=== PATIENT | male | born 1965 | race Two or more races ===

== ENCOUNTER → 2016-09-16 | Outpatient (CLI) | payer OTHER ==
--- NOTE | 2016-09-17 16:07 | CONS ---
DATE OF SERVICE: 09/16/2016 This patient is a 50-year-old gentleman who has been evaluated in the sleep center for obstructive sleep apnea/hypopnea syndrome. HISTORY OF PRESENT ILLNESS/SLEEP-WAKE EVALUATION: This patient first was diagnosed with obstructive sleep apnea about 15 years ago. Since that time he has been using his CPAP equipment and he continues to use his CPAP equipment every night for the whole night. He lost about 90 pounds since his first sleep study. Sleep study was never repeated. He continued to use the same machine for 15 years. At present he has developed sleepiness during the day, wakes up tired , falls asleep during the day. [place] Sleepiness Scale is 12. He wakes up from sleep once with nocturia. No history of hypnagogic hallucinations, sleep paralysis or cataplexy. Past medical history if positive for problems with pain in his right foot after a work accident. MEDICATION: Gabapentin. PAST SURGICAL HISTORY: 1. Kidney surgery for cancer about 5 years ago. 2. Right wrist surgery at the age of 20. SOCIAL HISTORY: Negative for smoking or using alcohol. FAMILY HISTORY: Positive for lupus erythematosus in his mother and sister. REVIEW OF SYSTEMS: No fevers. No double vision. No recent chest pain. No shortness of breath. No abdominal pain. No bleeding episodes. No blood in urine. No seizure episodes. Sometimes awakenings from sleep. Sleepiness during the day. PHYSICAL EXAM: The patient is a pleasant 50-year-old gentleman without distress. VITAL SIGNS: Blood pressure 134/77, heart rate 81, respiratory rate 18. Height 6 feet 6-1/2 inches. Weight 409.8. BMI 46.7. Neck 20 inches in circumference. Temperature 98.7. Oxygen saturation at room air 94%. GENERAL: A pleasant patient without distress. HEENT: PERRLA. EOMI. Evaluation of oropharynx showed tongue protrudes midline. Low position of soft palate. Practical absence of uvula. NECK: Supple. No JVD. Thyroid is not palpable. LUNGS: Clear to percussion and to auscultation. Good air exchange. No wheezing or rhonchi. HEART: S1, S2 regular. No murmurs, gallops or rubs. ABDOMEN: Obese. EXTREMITIES: One plus bilateral ankle edema. LAP HAND TOOL: Awake, alert and oriented x3. Cranial nerves 2 through 7 are intact. There is no fasciculation or atrophy noted. No focal deficits observed. IMPRESSION: 1. Obstructive sleep apnea/hypopnea syndrome for 15 years. Recently patient developed tiredness and sleepiness during the day while he continued to use his CPAP equipment. CPAP equipment has not been changed since his first sleep study 15 years ago. 2. Obesity; body mass index 46.7. Patient lost 90 pounds since his first sleep study. 3. Status post partial nephrectomy on the right kidney for cancer. 4. Status post right wrist surgery. 5. Pain in the right foot after an injury in the past. PLAN: 1. Repeat CPAP titration for reevaluation for effective CPAP pressure at the present time after patient lost 90 pounds of weight. 2. Patient will get new CPAP equipment after titration is done. 3. Continue losing weight. 4. Sleep hygiene with regular time in the bed for at least 8 hours. 5. Prescription for all necessary CPAP supplied, including mask, tube, filters. Thank you very much for referring this patient for evaluation. Sincerely, Dustin Jimenez. , PhD, FAASM. Diplomat of [place] [employer], Sleep Medicine Board by [place] [employer] [place] [employer] Trimmer [employer] Clippings of [facility]
== END ==
LOC: SLEEP 15:30
PROVIDERS: ATTEND Internal Medicine
DX: G47.33 Obstructive sleep apnea (adult) (pediatric) (principal); E66.9 Obesity, unspecified; Z98.890 Other specified postprocedural states; Z79.899 Other long term (current) drug therapy
CPT/HCPCS: 99211

== ENCOUNTER → 2016-12-30 | Outpatient (CLI) | payer OTHER ==
--- NOTE | 2016-12-30 15:38 | PN ---
PROGRESS NOTE DATE OF SERVICE: 12/30/2016 51-year-old gentleman has been followed in sleep center for treatment of obstructive sleep apnea-hypopnea syndrome. Recently patient home sleep apnea test and CPAP titration and I discussed results of sleep studies with patient in detail. Home sleep apnea test showed severe obstructive sleep apnea-hypopnea syndrome with apnea-hypopnea index 40 and during CPAP titration, his respiration was normalized. The patient received his new CPAP unit and is able to use equipment every night without significant problem. He likes machine. He likes the mask. He does not wake up from sleep and he does not feel sleepiness during the day. [place] Sleepiness Scale today is 2. I checked reading from his machine. CPAP pressure is 12 cm of water usage. Usage is 29 days out of 30 for more than 4 hours, which is very good compliance. Apnea-hypopnea index on the machine is only 1.4, which is totally normal. 95% of leak is only 0.8. CURRENT MEDICATIONS: Gabapentin. PHYSICAL EXAM: 51-year-old gentleman without distress, BP 131/82, HR 100, RR 16, weight 418, temp 98.5, oxygen saturation: Room air 96%. Oropharynx low position of soft palate. Neck Supple, no JVD. Thyroid is not palpable. LUNGS Clear to percussion and to auscultation. Good air exchange. No wheezing or rhonchi. HEART S1, S2 regular. No murmurs, gallops, or rubs. ABDOMEN : Obese. Soft and nontender. Bowel sounds are present. No organomegaly appreciated. EXTREMITIES No clubbing or cyanosis. PUMPMAN Awake, alert, and oriented X3. Cranial nerves 2 to 7 intact. There is no fasciculation or atrophy. noted. No focal deficits observed. IMPRESSION: 1. Severe obstructive sleep apnea-hypopnea syndrome; apnea-hypopnea index 40.1 with oxygen saturation of 84% on control with CPAP at 12 cm of water. Patient demonstrated practically 100% compliance with treatment benefitting from treatment. 2. Obesity. 3. Status post resection of right kidney for the cancer. 4. Status post right wrist surgery. PLAN: 1. The patient will continue to use his CPAP equipment every night for the whole night. 2. Losing weight. 3. Sleep hygiene with regular time in bed for at least 8 hours. 4. No driving if feeling sleepiness. 5. Prescription for all necessary CPAP supplies including mask, tube, filters. 6. Followup visit in 1 year or earlier if patient has any problems. Thank you very much for allowing me to participate in management of your patient. Sincerely, Dustin Jimenez MD, PhD, FAASM Diplomat of [place] [employer] [place] [employer] Priest of [facility] [place] MMSOUTHL / FRANTZN: [id number] /
== END | disposition home or self-care (01) ==
LOC: SLEEP 13:26
PROVIDERS: ATTEND Internal Medicine
DX: G47.33 Obstructive sleep apnea (adult) (pediatric) (principal); E66.9 Obesity, unspecified; Z98.890 Other specified postprocedural states; Z79.899 Other long term (current) drug therapy

== ENCOUNTER → 2017-12-02 | Outpatient (CLI) | payer OTHER ==
--- NOTE | 2017-12-02 12:10 | P.STRESS ---
- Stress Test Note Stress Test Results/Findings: Exam Performed: stress test Exam Date: 12/02/17 Reason for Exam: CP Height: 6 ft 7 in Weight: 182.798 kg Protocol: ERROL Stage: 84 Duration of Exercise: 6:15 Resting Heart Rate: 84 Resting Blood Pressure: 144/103 Maximum Achieved Heart Rate: 155 Maximum Achieved Blood Pressure: 144/103 85% PMHR: 144 100% PMHR: 169 METS: 7.5 Technologist Comment: Stress Test Results/Findings: This is a 52-year-old gentleman being evaluated for cardiac status because of her frequent PVCs. Stress data: Baseline EKG showed sinus rhythm with evidence of occasional PVCs. Blood pressure at rest is 1 4403 with pulse rate of 84. Patient walked on the Errol protocol for 6 minutes and 15 seconds achieving a maximal heart rate of 155 with a blood pressure 111/54. EKGs taken during and after exercise did not reveal any changes to sized ischemia. Patient did not express any chest pain. Patient continued to have PVCs which are ineffective focal and the PICU, frequent with bigeminal pattern. The post-excised.. No sustained arrhythmias are detected. Patient did not experience any chest pain. Final impression #1. Negative stress test #2. Patient did not express any chest pain #3. Patient had frequent PVCs at rest and also throughout the test. Developed bigeminal pattern in the post-exercise period. Patient remained asymptomatic
--- NOTE | 2017-12-03 07:42 | ECHOF ---
Referral Reason:I49.3 Ventricular premature depolarization MEASUREMENTS -------- HEIGHT: 200.7 cm WEIGHT: 182.3 kg BP: RVIDd: 2.5 cm (< 3.3) IVSd: 1.2 cm (0.6 - 1.1) LVIDd: 5.8 cm (3.9 - 5.3) LVPWd: 1.3 cm (0.6 - 1.1) IVSs: 1.4 cm LVIDs: 4.1 cm LVPWs: 1.5 cm LAESV Index (A-L): 25.22 ml/m Ao Diam: 3.3 cm (2.0 - 3.7) AV Cusp: 1.8 cm (1.5 - 2.6) LA Diam: 4.5 cm (2.7 - 3.8) MV E Kostas: 0.94 m/s MV DecT: 353 ms MV A Kostas: 0.33 m/s MV E/A Ratio: 2.86 RAP: 10.00 mmHg RVSP: 33.61 mmHg FINDINGS -------- Sinus rhythm. Frequent ventricular premature beats. This was a technically difficult study with suboptimal views. The left ventricular size is normal. There is mild concentric left ventricular hypertrophy. Overa ll left ventricular systolic function is normal with, an EF between 55 - 60 %. The right ventricle is normal in size and function. Normal LA size by volume 22+/-6 ml/m2. The right atrium is normal in size. 3 ml of Lumason was utilized for enhancement of images. There is mild aortic valve sclerosis. There is no evidence of aortic regurgitation. There is no e vidence of aortic stenosis. The mitral valve leaflets are mildly thickened. There is trace to mild mitral regurgitation. Trace tricuspid regurgitation present. Right ventricular systolic pressure is normal at < 35 mmHg. There is no evidence of pulmonary hypertension. The pulmonic valve was not well visualized. The aortic root size is normal. The IVC is dilated with normal collapse. There is no pericardial effusion. CONCLUSIONS -------- 1. Sinus rhythm. 2. Frequent ventricular premature beats. 3. This was a technically difficult study with suboptimal views. 4. The left ventricular size is normal. 5. There is mild concentric left ventricular hypertrophy. 6. Overall left ventricular systolic function is normal with, an EF between 55 - 60 %. 7. Normal LA size by volume 22+/-6 ml/m2. 8. 3 ml of Lumason was utilized for enhancement of images. 9. There is mild aortic valve sclerosis. 10. The mitral valve leaflets are mildly thickened. 11. There is trace to mild mitral regurgitation. 12. Trace tricuspid regurgitation present. 13. Right ventricular systolic pressure is normal at < 35 mmHg. 14. There is no evidence of pulmonary hypertension. 15. The pulmonic valve was not well visualized. 16. The aortic root size is normal. 17. The IVC is dilated with normal collapse. 18. There is no pericardial effusion. WASTE WATER OPERATOR: Cheo Callaway RDCS
== END | disposition home or self-care (01) ==
LOC: RADNMMAIN 11:18
PROVIDERS: ATTEND Family Medicine
DX: I49.3 Ventricular premature depolarization (principal); I35.8 Other nonrheumatic aortic valve disorders; R00.8 Other abnormalities of heart beat
CPT/HCPCS: 93017; C8929; Q9950; 93306

== ENCOUNTER → 2018-02-22 | Outpatient (CLI) | payer OTHER ==
[2018-02-22 14:13] LABS: HCT 41.7 % (39.0-53.0); HGB 13.6 gm/dL (13.0-17.5); MCH 28.1 pg (25.0-35.0); MCHC 32.6 g/dL (31.0-37.0); MCV 86.1 fL (80.0-100.0); Mean Platelet Volume 6.6; Platelet Count 179 k/uL (150-450); RBC 4.84 m/uL (4.30-5.90); RDW 13.7 % (11.5-15.5); WBC 7.9 k/uL (3.8-10.6)
[2018-02-22 14:56] LABS: Potassium 4.3 mmol/L (3.5-5.1)
== END ==
LOC: LABPAT 13:34
PROVIDERS: ATTEND Internal Medicine Interventional Cardiology
DX: Z01.812 Encounter for preprocedural laboratory examination (principal); I49.3 Ventricular premature depolarization; E66.01 Morbid (severe) obesity due to excess calories; C64.2 Malignant neoplasm of left kidney, except renal pelvis
CPT/HCPCS: 80051; 82565; 84520; 85027

== ENCOUNTER 2018-02-24 08:35 | Day surgery (SDC) | payer OTHER ==
[2018-02-22 17:57] VITALS: BMI 44.8
[~2018-02-24 08:35] MED LIST: ALPRAZolam 0.25 MG TAB PO PRN; ALPRAZolam 0.5 MG TAB PO PRN; ASPIRIN 325 MG TAB PO ONE; ATORVASTATIN 80 MG TAB PO ONE; NITROGLYCERIN SL TABS 0.4 MG TAB SUBLINGUAL PRN; SODIUM CHLORIDE 0.9% 1,000 ML in EMPTY BAG 1 BAG IV ONE
[2018-02-24 09:14] VITALS: TEMP 97.6
[2018-02-24] MEDS ORDERED: HEPARIN SODIUM 1,000 UN/ML (10ML VL) ONE (09:31)
[2018-02-24] MEDS ORDERED: VERAPAMIL 2.5 MG/ML 2 ML AMP ONE (09:32)
[2018-02-24] MEDS ORDERED: LIDOCAINE 1% INJ 10MG/ML (20 ML MDV) ONE (09:32)
[2018-02-24] MEDS: MIDAZOLAM 2 MG/2 ML VIAL IVP ONE ×3 (09:52→10:03)
[2018-02-24] MEDS: LIDOCAINE 1% INJ 10MG/ML (20 ML MDV) SQ ONE ×2 (09:55→09:57)
[2018-02-24] MEDS: VERAPAMIL SYRINGE (5 MG/10 ML) INTRAARTER ONE ×2 (10:01→10:13)
[2018-02-24] MEDS ORDERED: HEPARIN SODIUM 1,000 UN/ML (10ML VL) IV ONE (10:03)
[2018-02-24] MEDS ORDERED: IOPAMIDOL-370 100ML BTL INJ ONE (10:09)
[2018-02-24 11:08] VITALS: RESP 16
--- NOTE | 2018-02-24 11:13 | CC ---
CARDIAC CATHETERIZATION REPORT DATE OF SERVICE: 02/24/2018 PROCEDURE: Left heart catheterization and coronary angiography. PERFORMED BY: Dr. Mai Kelly. Moderate conscious sedation time was 23 minutes. He was given Versed and his oxygen saturation, hemodynamics and EKG were monitored closely. CLINICAL INFORMATION: Mr. Oleg Lainez is a gentleman who weighs more than 350 pounds, has frequent PVCs and an abnormal stress test with anteroseptal and reversible area and short runs of PAT in the recovery after walking for about 6 minutes. Because of abnormal stress test, frequent PVCs and significant risk factors. He was advised coronary angiography. He had a history of renal cell cancer for which he had a nephrectomy performed. He was hydrated, brought in for the procedure and was advised that he will be given the least amount of contrast. PROCEDURE NOTE: Under local anesthesia and strict aseptic precautions, a 6-Jamaican introducer was placed in the right radial artery. I used a micropuncture needle technique for access. Using an Ultimate 1 catheter I performed coronary angiography of both coronary arteries and a pigtail catheter was used to check LV pressures. LV gram was not performed. Sheath was taken out and a TR band applied as per protocol and oxygen saturation of the fingers of the right hand was 94%. Patient tolerated procedure well without complications. Results were discussed with him. Images reviewed and also I will talk to his by phone. CARDIAC CATHETERIZATION FINDINGS: The left ventricular end-diastolic pressure was about 11 mmHg without any gradient across the aortic valve. CORONARY ANGIOGRAPHY FINDINGS: RIGHT CORONARY ARTERY: A very dominant vessel. No significant disease. Distally bifurcates into a large PDA and PLV, both of which supply a fair amount of myocardium. No significant disease in the dominant RCA. The branches of the RCA are somewhat smaller than the main trunk. LEFT MAIN CORONARY ARTERY: This is a short patent vessel free of significant disease that bifurcates into LAD and circumflex. LEFT ANTERIOR DESCENDING CORONARY ARTERY: Good caliber vessel, extends along the anterior wall, gives off septal and diagonal branches. There is a large diagonal and large septal, then smaller septal, after that then the vessel runs all the way to the apex and curves over the apex to supply the inferoapical portion of left ventricle. No significant disease involving the LAD system. LEFT POSTERIOR CIRCUMFLEX CORONARY ARTERY: Small, nondominant vessel. No significant disease. It runs in the AV groove and gives off a posterolateral branch, has minor irregularities. LV-gram was not performed. LV pressures were checked. IMPRESSION: This patient has a right dominant system, no significant obstructive coronary artery disease and normal filling pressures. Left ventriculogram was not performed, but by echocardiogram, ejection fraction was 55%. RECOMMENDATION: Findings were discussed with the patient. He is advised to be on a beta mahin 25 mg of metoprolol daily, aspirin 81 mg daily, and I will see him in the office in a followup visit. No intervention necessary. Specifically, he does not require any coronary intervention and also we will treat him with a small dose of beta blockers and see the impact of this by a repeating a Holter down the road. I discussed my thoughts in detail with the patient and I will speak to his as well. EL / FRANTZN: [id number] /
[2018-02-24] MEDS ORDERED: SODIUM CHLORIDE 0.9% 1,000 ML IV SCH (11:15)
[2018-02-24 17:25] VITALS: BP 112/87
[2018-02-24 17:28] VITALS: PULSE 62
== END 2018-02-24 17:25 | disposition home or self-care (01) ==
LOC: CATHCVL 08:35
PROVIDERS: ATTEND Internal Medicine Interventional Cardiology
DX: I49.3 Ventricular premature depolarization (principal); E66.01 Morbid (severe) obesity due to excess calories; Z85.528 Personal history of other malignant neoplasm of kidney; Z88.5 Allergy status to narcotic agent; Z90.5 Acquired absence of kidney; Z79.82 Long term (current) use of aspirin; Z79.899 Other long term (current) drug therapy
CPT/HCPCS: 93458; 99152; 99153; C1769; C1894; J2250; J2001; J1644; Q9967

== ENCOUNTER → 2018-03-02 | Outpatient (CLI) | payer OTHER ==
--- NOTE | 2018-03-02 16:22 | PN ---
PROGRESS NOTE DATE OF SERVICE: 03/02/2018 This patient is a 52-year-old gentleman who has been followed in Sleep Center for treatment of severe obstructive sleep apnea-hypopnea syndrome. The patient continues to use his CPAP equipment every night for the whole night. Sometimes he has problems related to the full-face mask leaking to the upper part of his face. [place] Sleepiness Scale today is only 2, which is absolutely normal. I checked the CPAP unit. CPAP pressure is 12 cm of water. Usage is 100% of the nights and 27/30 nights for more than 4 hours. Average usage is 7.6 hours. CPAP pressure is 12 cm of water. Leak is only 1 L/minute. Apnea-hypopnea index is only 1.5, which is absolutely perfect. MEDICATION: Lopressor. PHYSICAL EXAMINATION: GENERAL: A pleasant patient in no distress. VITAL SIGNS: BP 154/91, HR 50, RR 16, height 6 feet 4 inches, weight 409, body mass index 49.7, temperature 97.4, oxygen saturation at room air 98%. HEENT: PERRLA, EOMI. Evaluation of oropharynx showed tongue protrudes midline. Low position of soft palate. NECK: Supple. No JVD. Thyroid is not palpable. LUNGS: Clear to percussion and to auscultation. Good air exchange. No wheezing or rhonchi. HEART: S1, S2 with some irregularities. ABDOMEN: Obese. EXTREMITIES: No clubbing or cyanosis. FORMS BUILDER: Awake, alert, and oriented X3. Cranial nerves 2 to 7 intact. There is no fasciculation or atrophy. noted. No focal deficits observed. IMPRESSION: 1. Severe obstructive sleep apnea-hypopnea syndrome; apnea-hypopnea index 40.1, under full control with CPAP at 12 cm of water. Patient demonstrated great compliance with treatment, benefitting from treatment. 2. Patient complains of some leak from full-face mask to the upper part of the face. 3. Obesity. 4. Cardiac arrhythmia. According to the patient, a recent study showed that he has extrasystoles, and cardiac catheterization and stress test are normal. 5. Status post resection of right kidney for cancer. 6. Status post right wrist surgery. PLAN: 1. Patient will continue to use CPAP equipment every night for the whole night. 2. We will fit patient with a DreamWear mask, and if he likes it, I will write a prescription. 3. Losing weight. 4. Sleep hygiene with regular time in bed for least 8 hours. 5. No driving if feeling any sleepiness. Thank you very much for allowing me to participate in the management of your patient. Sincerely, Dustin Jimenez MD, PhD, FAASM Diplomat of [place] [employer] [employer] Cad Manager of [facility] [place] MMODL / FRANTZN: [id number] /
== END ==
LOC: SLEEP 15:04
PROVIDERS: ATTEND Internal Medicine
DX: G47.33 Obstructive sleep apnea (adult) (pediatric) (principal); E66.9 Obesity, unspecified; I49.9 Cardiac arrhythmia, unspecified; Z90.5 Acquired absence of kidney; Z85.528 Personal history of other malignant neoplasm of kidney; Z98.890 Other specified postprocedural states; Z99.89 Dependence on other enabling machines and devices

== ENCOUNTER → 2019-12-20 | Outpatient (CLI) | payer OTHER ==
--- NOTE | 2019-12-21 00:59 | SFUN ---
SLEEP CENTER FOLLOW UP NOTE DATE OF SERVICE: 12/20/2019 A 54-year-old gentleman who has been followed in Sleep Center for treatment of obstructive sleep apnea-hypopnea syndrome. The patient continues to use his CPAP equipment every night for the whole night. Sleeps well with equipment, does not snore. He increased his weight from 409 pounds up to 472 pounds. [place] Sleepiness Scale is 6, which is normal. I checked his CPAP unit. CPAP pressure is 12 cm of water. Usage is 30 out of 30 nights for more than 4 hours with average usage 9.4 hours per night. Leak is only 2 L/minute. Apnea-hypopnea index is 1.2, which is perfect. MEDICATIONS: Mirtazapine. PHYSICAL EXAMINATION: GENERAL: Patient in no distress. VITAL SIGNS: BP 163/85, HR 88, RR 16, height 6 feet 5 inches, weight 472, BMI 55.9, temperature 98.3, oxygen saturation at room air 95%. HEENT: PERRLA, EOMI. Oropharynx low position of soft palate. NECK: Supple, no JVD. Thyroid is not palpable. LUNGS: Clear to percussion and to auscultation. Good air exchange. No wheezing or rhonchi. HEART: S1, S2 regular. No murmurs, gallops, or rubs. ABDOMEN: Obese. EXTREMITIES: No clubbing or cyanosis. EMULSIFICATION OPERATOR: Awake, alert, and oriented X3. Cranial nerves 2 to 7 intact. There is no fasciculation or atrophy. noted. No focal deficits observed. IMPRESSION: 1. Obstructive sleep apnea-hypopnea syndrome; apnea-hypopnea index 40.1. Patient demonstrated 100% compliance with treatment. Normal respiration on treatment. 2. Obesity, morbid range. 3. History of cardiac arrhythmia. 4. Status post resection of right kidney for cancer. 5. Status post right wrist surgery. PLAN: 1. Patient will continue to use PAP equipment every night for the whole night. 2. Sleep hygiene with regular time in bed for at least 7-1/2 to 8 hours. 3. Precautions related to driving. No driving if feeling sleepiness. 4. I will maintain all necessary prescription for PAP supplies including mask, tube, filters. 5. Watching weight. 6. No driving if feeling sleepiness. 7. Follow-up visit in 6 months or earlier if patient has any problems. Thank you very much for allowing me to participate in management of your patient. Sincerely, Dustin Jimenez MD, PhD, FAASM Diplomat of [place] [employer] [employer] Sap Gatherer of [facility] [place] EL / JOY: [id number] /
== END | disposition home or self-care (01) ==
LOC: SLEEP 15:28
PROVIDERS: ATTEND Internal Medicine
DX: G47.33 Obstructive sleep apnea (adult) (pediatric) (principal); E66.01 Morbid (severe) obesity due to excess calories; Z86.79 Personal history of other diseases of the circulatory system; Z90.5 Acquired absence of kidney; Z98.890 Other specified postprocedural states

== ENCOUNTER 2020-08-04 15:31 | Emergency (ER) | payer OTHER ==
[2020-08-04 15:54] VITALS: RESP 20
--- NOTE | 2020-08-04 17:03 | ED ---
Upper Extremity HPI - General Chief Complaint: Extremity Injury, Upper Stated Complaint: thumb injury Time Seen by Provider: 08/04/20 16:23 Source: patient, RN notes reviewed Mode of arrival: ambulatory Limitations: no limitations - History of Present Illness Initial Comments: Patient is a 54-year-old male that presents to emergency department with right thumb pain after slamming in his car door. He notes that it was bleeding at the base of the nail but was controlled with a Band-Aid. He notes that she does have full range of motion and sensation in that thumb is just a little bit numb from the trauma. He had no other complaints or issues and was in no distress while sitting up during exam and interview. He notes that his pain was approximately a 7 out of 10 pulse eating in nature. He denied any numbness tingling decreased range of motion or strength in that right thumb. He denied any chest pains worse breath headache nausea vomiting diarrhea constipation fever fatigue chills. - Related Data Home Medications Medication Instructions Recorded Confirmed Multivitamins, Thera [Multivitamin 1 tab PO DAILY 02/16/18 05/05/18 (formulary)] Loratadine [Claritin] 10 mg PO DAILY 05/05/18 05/05/18 Metoprolol Tartrate 25 mg PO DAILY@1200 05/05/18 05/05/18 Terbinafine [LamISIL] 250 mg PO DAILY 05/05/18 05/05/18 Allergies Allergy/AdvReac Type Severity Reaction Status Date / Time morphine AdvReac Nausea & Verified 08/04/20 15:50 Vomiting Review of Systems ROS Statement: Those systems with pertinent positive or pertinent negative responses have been documented in the HPI. ROS Other: All systems not noted in ROS Statement are negative. Past Medical History Past Medical History: Cancer, Sleep Apnea/CPAP/BIPAP Additional Past Medical History / Comment(s): kidney cancer with surgery (2012), hx kidney stones, hx subaracchoid hemorrhage, bigeminy. History of Any Multi-Drug Resistant Organisms: None Reported Past Surgical History: Heart Catheterization, Orthopedic Surgery Additional Past Surgical History / Comment(s): partial nephrectomy(not sure which), rt wrist surgery Past Anesthesia/Blood Transfusion Reactions: No Reported Reaction Past Psychological History: Depression Smoking Status: Never smoker Past Alcohol Use History: None Reported Past Drug Use History: None Reported - Past Family History Mother Family Medical History: No Reported History General Exam Limitations: no limitations General appearance: alert, in no apparent distress, obese Head exam: Present: atraumatic, normocephalic, normal inspection Eye exam: Present: normal appearance, PERRL, EOMI. Absent: scleral icterus, conjunctival injection, periorbital swelling Neck exam: Present: normal inspection Respiratory exam: Present: normal lung sounds bilaterally. Absent: respiratory distress, wheezes, rales, rhonchi, stridor Cardiovascular Exam: Present: regular rate, normal rhythm, normal heart sounds. Absent: systolic murmur, diastolic murmur, rubs, gallop, clicks Extremities exam: Present: normal inspection, full ROM, normal capillary refill. Absent: tenderness, pedal edema, joint swelling, calf tenderness Right Hand Wrist exam: Present: normal inspection, subungual hematoma (Right thumb). Absent: laceration, ecchymosis, deformity, crepitus, dislocation, erythema, nail avulsion Neurological exam: Present: alert, oriented X3, CN II-XII intact Psychiatric exam: Present: normal affect, normal mood Skin exam: Present: warm, dry, intact, normal color. Absent: rash Course Vital Signs 08/04/20 15:50 Temperature 98.5 F Pulse Rate 112 H Respiratory 20 Rate Blood Pressure 150/78 O2 Sat by Pulse 94 L Oximetry Medical Decision Making - Medical Decision Making 54-year-old male with right thumb pain after slamming in a car door. Right thumb x-ray, 15 mg of Toradol ordered. case discusses with Dr. Bledsoe, pt can discharge home with follow up to primary care. - Radiology Data Radiology results: report reviewed, image reviewed xr right thumb: No acute osseous abnormality. Disposition Clinical Impression: Pain of right thumb Disposition: HOME SELF-CARE Condition: Stable Instructions (If sedation given, give patient instructions): Finger Sprain (ED) Additional Instructions: Please return to the Emergency Department if symptoms worsen or any other concerns. Follow-up with primary care in 3-5 days. Take Tylenol Motrin for pain as needed. Is patient prescribed a controlled substance at d/c from ED?: No Referrals: Geovanna Fortune MD [Primary Care Provider] - 1-2 days Time of Disposition: 18:19
--- NOTE | 2020-08-04 18:31 | XR ---
EXAMINATION TYPE: XR finger RT DATE OF EXAM: 08/04/2020 COMPARISON: NONE HISTORY: 54-year-old male right thumb shut in car door, pain. TECHNIQUE: 3 views coned down right thumb FINDINGS: Some underlying osteophytic changes present especially at the base of the thumb but also at the first MCP and IP joints. There is corticated density along the dorsal aspect of the proximal phalangeal he ad suggesting either capsular calcification or a chronically fragmented spur. No acute fracture, subl uxation, dislocation seen. IMPRESSION: Scattered osteoarthritic change. Corticated density measuring 4 mm along the dorsal aspect of the pro ximal phalangeal head could represent capsular calcification, a loose body, or a chronically fragment ed spur. No acute osseous abnormality seen.
[2020-08-04 18:38] VITALS: BP 140/83; PULSE 92; TEMP 97.5
== END 2020-08-04 18:38 | disposition home or self-care (01) ==
LOC: EC 15:31
DX: M79.644 Pain in right finger(s) (principal); W23.0XXA Caught, crushed, jammed, or pinched between moving objects, initial encounter
CPT/HCPCS: 99283

== ENCOUNTER → 2020-12-18 | Outpatient (CLI) | payer OTHER ==
--- NOTE | 2020-12-18 14:50 | SFUN ---
SLEEP CENTER FOLLOW UP NOTE DATE OF SERVICE: 12/18/2020 55-year-old gentleman has been followed in [facility] for treatment of obstructive sleep apnea-hypopnea syndrome. The patient referred that for the last 6 months has problems with falling asleep and started to wake up from sleep, which did not happen before. No information about does he have any snoring because he sleeps by himself. [place] Sleepiness Scale today is 7 which is in normal range. I checked his CPAP unit. Pressure is 12 cm of water. Usage is 29/30 nights, which is good compliance. Average 8.6 hours per night. Leak is only 1 L/minute which is perfect. Apnea-hypopnea index is only 1.4 which is absolutely perfect. MEDICATIONS: Metformin twice a day. PHYSICAL EXAMINATION: GENERAL: Patient in no distress. BP 147/88, HR 78, RR 18, height 6 feet 5 inches, weight 477.6, which is 5 pounds more than during the last visit. Body mass index 56.5, temperature 97.1, oxygen saturation at room air 98%. Oropharynx low position of soft palate. NECK: Supple, no JVD. Thyroid is not palpable. LUNGS: Clear to percussion and to auscultation. Good air exchange. No wheezing or rhonchi. HEART: S1, S2 regular. No murmurs, gallops, or rubs. ABDOMEN: Obese. Soft and nontender. Bowel sounds are present. No organomegaly appreciated. EXTREMITIES: No clubbing or cyanosis. [employer] MEMBER: Awake, alert, and oriented X3. Cranial nerves 2 to 7 intact. There is no fasciculation or atrophy. noted. No focal deficits observed. IMPRESSION: 1. Severe obstructive sleep apnea-hypopnea syndrome. The patient demonstrated great compliance with treatment. Normal respiration on CPAP machine. No information about any snoring because patient sleeps by himself. 2. Recently difficulties to initiate sleep and some awakenings from sleep with difficulties to fall asleep. Sleep schedule from 11 p.m. to 10 a.m. 3. History of cardiac arrhythmia. 4. Status post resection of right kidney for cancer. 5. Status post right wrist surgery. PLAN: 1. I slightly increased pressure in the machine to 13 cm of water. 2. I discussed with the patient psychological techniques for treatment of insomnia, including stimulus control, paradoxical intention, worry time, no watching clock in bedroom. 3. No caffeinated beverages. 4. Prescription for clonazepam 0.5 mg at bedtime to establish sleep schedule. 5. Patient will continue to use PAP equipment every night for the whole night. 6. Sleep hygiene with regular time in bed for at least 7-1/2 to 8 hours. 7. Precautions related to driving. No driving if feeling sleepiness. 8. I will maintain all necessary prescription for PAP supplies including mask, tube, filters. 9. Watching weight. 10.Follow-up visit in 6 months or earlier if patient has any problems. Thank you very much for allowing me to participate in the management of your patient. Sincerely, Dustin Jimenez MD, PhD, FAASM Diplomat of [employer] [employer] Sleep Medicine Board of [place] [employer] Clinical Laboratory Assistant of [facility] [place] MMSIXTO / JOY: [id number] / MTDD
== END ==
LOC: SLEEP 12:57
PROVIDERS: ATTEND Internal Medicine
DX: G47.33 Obstructive sleep apnea (adult) (pediatric) (principal); Z99.89 Dependence on other enabling machines and devices; Z90.5 Acquired absence of kidney; Z98.890 Other specified postprocedural states; Z86.79 Personal history of other diseases of the circulatory system; Z88.5 Allergy status to narcotic agent

== ENCOUNTER → 2021-01-02 | Outpatient (CLI) | payer OTHER | END | disposition home or self-care (01) | LOC: LABWHC1 14:59 | PROVIDERS: ATTEND Family Medicine | DX: R53.83 Other fatigue (principal) | CPT/HCPCS: 36415; 84402; 84403 ==

== ENCOUNTER 2021-03-29 14:11 | Emergency (ER) | payer OTHER ==
[2021-03-29 14:35] VITALS: RESP 18; TEMP 97.7
[2021-03-29] MEDS ORDERED: SODIUM CHLORIDE 0.9% 1,000 ML IV STA (15:36)
--- NOTE | 2021-03-29 15:50 | ED ---
General Adult HPI - General Chief complaint: GI Bleed Stated complaint: Blood in stool Time Seen by Provider: 03/29/21 14:54 Source: patient, RN notes reviewed Mode of arrival: ambulatory Limitations: no limitations - History of Present Illness Initial comments: 55-year-old male presents to the emergency department for evaluation of bloody diarrhea. Patient states he had 2 episodes of diarrhea yesterday that were soft evidence of blood. States today at work he had an episode of diarrhea that was a moderate amount of bright red bleeding with dark red clots and minimal stool. States he had abdominal cramping and discomfort for a brief period of time after that, however states discomfort has resolved at this time. Did have some nausea initially, but states that has resolved as well. Patient denies any recent travel or use of oral antibiotics. Denies fever, chills, dizziness, chest pain, shortness of breath, vomiting, constipation, dysuria, or hematuria. - Related Data Home Medications Medication Instructions Recorded Confirmed Multivitamins, Thera [Multivitamin 1 tab PO DAILY 02/16/18 05/05/18 (formulary)] Loratadine [Claritin] 10 mg PO DAILY 05/05/18 05/05/18 Metoprolol Tartrate 25 mg PO DAILY@1200 05/05/18 05/05/18 Terbinafine [LamISIL] 250 mg PO DAILY 05/05/18 05/05/18 Allergies Allergy/AdvReac Type Severity Reaction Status Date / Time morphine AdvReac Nausea & Verified 03/29/21 14:35 Vomiting Review of Systems ROS Statement: Those systems with pertinent positive or pertinent negative responses have been documented in the HPI. ROS Other: All systems not noted in ROS Statement are negative. Past Medical History Past Medical History: Cancer, Sleep Apnea/CPAP/BIPAP Additional Past Medical History / Comment(s): kidney cancer with surgery (2012), hx kidney stones, hx subaracchoid hemorrhage, bigeminy. History of Any Multi-Drug Resistant Organisms: None Reported Past Surgical History: Heart Catheterization, Orthopedic Surgery Additional Past Surgical History / Comment(s): partial nephrectomy(not sure which), rt wrist surgery Past Anesthesia/Blood Transfusion Reactions: No Reported Reaction Past Psychological History: Depression Smoking Status: Never smoker Past Alcohol Use History: None Reported Past Drug Use History: None Reported - Past Family History Mother Family Medical History: No Reported History General Exam Limitations: no limitations (Developed, well-nourished male in no acute distre ss. Initial temperature 97.7, pulse 101, respirations 18, blood pressure 129/88, pulse ox 97% on room air.) General appearance: alert, in no apparent distress ENT exam: Present: normal exam, normal oropharynx, mucous membranes moist Respiratory exam: Present: normal lung sounds bilaterally. Absent: respiratory distress, wheezes, rales, rhonchi, stridor Cardiovascular Exam: Present: regular rate, normal rhythm, normal heart sounds. Absent: systolic murmur, diastolic murmur, rubs, gallop, clicks GI/Abdominal exam: Present: soft, normal bowel sounds, other (light brown stool liquid and mucousy with some soft formed stool as well). Absent: distended, tenderness, guarding, rebound, rigid Rectal exam: Present: normal inspection, normal rectal tone, heme (-) stool, other (no evidence of internal or external hemorrhoids.) Neurological exam: Present: alert, oriented X3, CN II-XII intact Psychiatric exam: Present: normal affect, normal mood Skin exam: Present: warm, dry, intact, normal color. Absent: rash Course Vital Signs 03/29/21 03/29/21 03/29/21 14:30 16:00 18:05 Temperature 97.7 F Pulse Rate 101 H 102 H 98 Respiratory 18 18 18 Rate Blood Pressure 129/88 142/97 136/94 O2 Sat by Pulse 97 98 100 Oximetry - Reevaluation(s) Reevaluation #1: 03/29/21 17:39 Patient reevaluated and updated on findings. Explained that there was no evidence of blood in his stool and the CT did not show any concerning abdominal findings, though was limited in quality. Discussed the finding of scattered nodular opacities at the lung bases. He does report exposure to Covid. States he has had 2 negative tests, but does have a cough and now has had diarrhea for the past 2 days. He is agreeable to the chest x-ray and Covid test. 03/29/21 18:39 Chest X-ray shows no acute process and COVID test is negative. Patient will be discharged home to follow up with PCP. Medical Decision Making - Medical Decision Making 55-year-old male presents to the emergency department for evaluation of GI bleed. Upon exam, patient is well-appearing and in no acute distress. He denies abdominal pain, cramping, or discomfort at this time. He had a single episode of bright red rectal bleeding this morning. States he has had a few episodes of diarrhea and loose stool over the past couple of days. Denies recent travel or antibiotic use. Patient was able to provide a stool sample that was brown liquid with soft formed stool; Hemoccult and C-Diff negative. No obvious external hemorrhoids. Vital signs are stable. Laboratory studies are unremarkable. CT of the abdomen and pelvis produce suboptimal results, however not concerning for significant findings. Patient is tolerating oral intake and has had no episodes of bloody diarrhea while present in the emergency department. He will be discharged home to follow up with his PCP for recheck. Strict return parameters were discussed. Patient verbalizes understanding and agrees with this plan. This patient's care was discussed with my attending Dr. Newton. - Lab Data Result diagrams: 03/29/21 16:02 03/29/21 16:02 Lab Results 03/29/21 03/29/21 03/29/21 Range/Units 15:50 15:50 15:55 WBC (3.8-10.6) k/uL RBC (4.30-5.90) m/uL Hgb (13.0-17.5) gm/dL Hct (39.0-53.0) % MCV (80.0-100.0) fL MCH (25.0-35.0) pg MCHC (31.0-37.0) g/dL RDW (11.5-15.5) % Plt Count (150-450) k/uL MPV Neutrophils % % Lymphocytes % % Monocytes % % Eosinophils % % Basophils % % Neutrophils # (1.3-7.7) k/uL Lymphocytes # (1.0-4.8) k/uL Monocytes # (0-1.0) k/uL Eosinophils # (0-0.7) k/uL Basophils # (0-0.2) k/uL PT (9.0-12.0) sec INR (<1.2) APTT (22.0-30.0) sec Sodium (137-145) mmol/L Potassium (3.5-5.1) mmol/L Chloride (98-107) mmol/L Carbon Dioxide (22-30) mmol/L Anion Gap mmol/L BUN (9-20) mg/dL Creatinine (0.66-1.25) mg/dL Est GFR (CKD-EPI)AfAm (>60 ml/min/1.73 sqM) Est GFR (CKD-EPI)NonAf (>60 ml/min/1.73 sqM) Glucose (74-99) mg/dL Plasma Lactic Acid [place] (0.7-2.0) mmol/L Calcium (8.4-10.2) mg/dL Total Bilirubin (0.2-1.3) mg/dL AST (17-59) U/L ALT (4-49) U/L Alkaline Phosphatase (38-126) U/L Troponin I (0.000-0.034) ng/mL Total Protein (6.3-8.2) g/dL Albumin (3.5-5.0) g/dL Stool Occult Blood Negative (Negative) C. difficile (EIA) Intrp Negative (Negative) Coronavirus (PCR) (Not Detectd) Blood Type Blood Type Confirm O Positive Blood Type Recheck Bld Type Recheck Status Antibody Screen Spec Expiration Date 03/29/21 03/29/21 03/29/21 Range/Units 16:02 16:02 16:02 WBC 9.5 (3.8-10.6) k/uL RBC 4.64 (4.30-5.90) m/uL Hgb 13.3 (13.0-17.5) gm/dL Hct 39.5 (39.0-53.0) % MCV 85.1 (80.0-100.0) fL MCH 28.7 (25.0-35.0) pg MCHC 33.7 (31.0-37.0) g/dL RDW 14.1 (11.5-15.5) % Plt Count 231 (150-450) k/uL MPV 7.2 Neutrophils % 73 % Lymphocytes % 17 % Monocytes % 5 % Eosinophils % 2 % Basophils % 0 % Neutrophils # 6.9 (1.3-7.7) k/uL Lymphocytes # 1.6 (1.0-4.8) k/uL Monocytes # 0.5 (0-1.0) k/uL Eosinophils # 0.2 (0-0.7) k/uL Basophils # 0.0 (0-0.2) k/uL PT 10.4 (9.0-12.0) sec INR 1.0 (<1.2) APTT 28.0 (22.0-30.0) sec Sodium 135 L (137-145) mmol/L Potassium 4.4 (3.5-5.1) mmol/L Chloride 103 (98-107) mmol/L Carbon Dioxide 24 (22-30) mmol/L Anion Gap 8 mmol/L BUN 20 (9-20) mg/dL Creatinine 1.23 (0.66-1.25) mg/dL Est GFR (CKD-EPI)AfAm 77 (>60 ml/min/1.73 sqM) Est GFR (CKD-EPI)NonAf 67 (>60 ml/min/1.73 sqM) Glucose 102 H (74-99) mg/dL Plasma Lactic Acid [place] (0.7-2.0) mmol/L Calcium 9.3 (8.4-10.2) mg/dL Total Bilirubin 0.8 (0.2-1.3) mg/dL AST 34 (17-59) U/L ALT 50 H (4-49) U/L Alkaline Phosphatase 119 (38-126) U/L Troponin I (0.000-0.034) ng/mL Total Protein 7.5 (6.3-8.2) g/dL Albumin 4.0 (3.5-5.0) g/dL Stool Occult Blood (Negative) C. difficile (EIA) Intrp (Negative) Coronavirus (PCR) (Not Detectd) Blood Type Blood Type Confirm Blood Type Recheck Bld Type Recheck Status Antibody Screen Spec Expiration Date 03/29/21 03/29/21 03/29/21 Range/Units 16:02 16:02 16:02 WBC (3.8-10.6) k/uL RBC (4.30-5.90) m/uL Hgb (13.0-17.5) gm/dL Hct (39.0-53.0) % MCV (80.0-100.0) fL MCH (25.0-35.0) pg MCHC (31.0-37.0) g/dL RDW (11.5-15.5) % Plt Count (150-450) k/uL MPV Neutrophils % % Lymphocytes % % Monocytes % % Eosinophils % % Basophils % % Neutrophils # (1.3-7.7) k/uL Lymphocytes # (1.0-4.8) k/uL Monocytes # (0-1.0) k/uL Eosinophils # (0-0.7) k/uL Basophils # (0-0.2) k/uL PT (9.0-12.0) sec INR (<1.2) APTT (22.0-30.0) sec Sodium (137-145) mmol/L Potassium (3.5-5.1) mmol/L Chloride (98-107) mmol/L Carbon Dioxide (22-30) mmol/L Anion Gap mmol/L BUN (9-20) mg/dL Creatinine (0.66-1.25) mg/dL Est GFR (CKD-EPI)AfAm (>60 ml/min/1.73 sqM) Est GFR (CKD-EPI)NonAf (>60 ml/min/1.73 sqM) Glucose (74-99) mg/dL Plasma Lactic Acid [place] 1.1 (0.7-2.0) mmol/L Calcium (8.4-10.2) mg/dL Total Bilirubin (0.2-1.3) mg/dL AST (17-59) U/L ALT (4-49) U/L Alkaline Phosphatase (38-126) U/L Troponin I <0.012 (0.000-0.034) ng/mL Total Protein (6.3-8.2) g/dL Albumin (3.5-5.0) g/dL Stool Occult Blood (Negative) C. difficile (EIA) Intrp (Negative) Coronavirus (PCR) (Not Detectd) Blood Type O Positive Blood Type Confirm Blood Type Recheck No Previous Record Bld Type Recheck Status CABO Indicated Antibody Screen NEGATIVE Spec Expiration Date 04/01/2021 - 230103/29/21 Range/Units 18:05 WBC (3.8-10.6) k/uL RBC (4.30-5.90) m/uL Hgb (13.0-17.5) gm/dL Hct (39.0-53.0) % MCV (80.0-100.0) fL MCH (25.0-35.0) pg MCHC (31.0-37.0) g/dL RDW (11.5-15.5) % Plt Count (150-450) k/uL MPV Neutrophils % % Lymphocytes % % Monocytes % % Eosinophils % % Basophils % % Neutrophils # (1.3-7.7) k/uL Lymphocytes # (1.0-4.8) k/uL Monocytes # (0-1.0) k/uL Eosinophils # (0-0.7) k/uL Basophils # (0-0.2) k/uL PT (9.0-12.0) sec INR (<1.2) APTT (22.0-30.0) sec Sodium (137-145) mmol/L Potassium (3.5-5.1) mmol/L Chloride (98-107) mmol/L Carbon Dioxide (22-30) mmol/L Anion Gap mmol/L BUN (9-20) mg/dL Creatinine (0.66-1.25) mg/dL Est GFR (CKD-EPI)AfAm (>60 ml/min/1.73 sqM) Est GFR (CKD-EPI)NonAf (>60 ml/min/1.73 sqM) Glucose (74-99) mg/dL Plasma Lactic Acid [place] (0.7-2.0) mmol/L Calcium (8.4-10.2) mg/dL Total Bilirubin (0.2-1.3) mg/dL AST (17-59) U/L ALT (4-49) U/L Alkaline Phosphatase (38-126) U/L Troponin I (0.000-0.034) ng/mL Total Protein (6.3-8.2) g/dL Albumin (3.5-5.0) g/dL Stool Occult Blood (Negative) C. difficile (EIA) Intrp (Negative) Coronavirus (PCR) Not Detected (Not Detectd) Blood Type Blood Type Confirm Blood Type Recheck Bld Type Recheck Status Antibody Screen Spec Expiration Date - EKG Data EKG shows normal: sinus rhythm Rate: tachycardia EKG Comments: EKG was obtained at 1602 and shows sinus tachycardia, unable to rule out anterior infarct. Ventricular rate 108, IL interval 204, QRS duration 86, QT/QTC 344/460. Interpretation abnormal ECG. - Radiology Data Radiology results: report reviewed, image reviewed CT of the abdomen and pelvis with contrast was obtained. Report was reviewed in its entirety. Impression per Dr. Huggins's #1 assessment of solid organs was limited due to poor contrast bolus timing. 2. There are scattered nodular opacities at the lung bases with more groundglass/consolidative opacity in the lingula. Findings likely on the basis of infectious/inflammatory etiology. #3. No acute process in the abdomen or pelvis however assessment is limited due to poor contrast bolus timing. Two-view chest x-ray was obtained. Report is reviewed in its entirety. Impre ssion per Dr. Huggins is no acute cardiopulmonary process. Disposition Clinical Impression: Diarrhea Disposition: HOME SELF-CARE Condition: Stable Instructions (If sedation given, give patient instructions): Acute Diarrhea (ED) Additional Instructions: Maintain hydration with adequate fluid intake. Consider electrolyte solution such as Gatorade or Powerade. Avoid headache, spicy, or irritating foods. Please follow-up with your PCP for a recheck early this week. Return to the emergency department with any new, worsening, or concerning sym ptoms as we discussed. Is patient prescribed a controlled substance at d/c from ED?: No Referrals: Geovanna Fortune MD [Primary Care Provider] - 1-2 days Time of Disposition: 19:00
[2021-03-29 16:20] LABS: Calcium 9.3 mg/dL (8.4-10.2); Potassium 4.4 mmol/L (3.5-5.1); Total Bilirubin 0.8 mg/dL (0.2-1.3); Total Protein 7.5 g/dL (6.3-8.2)
[2021-03-29 16:25] LABS: Prothrombin Time 10.4 sec (9.0-12.0)
[2021-03-29 16:29] LABS: Basophils % (A) 0 %; Eosinophils # (A) 0.2 k/uL (0-0.7); Eosinophils % (A) 2 %; HCT 39.5 % (39.0-53.0); HGB 13.3 gm/dL (13.0-17.5); Lymphocytes # (A) 1.6 k/uL (1.0-4.8); Lymphocytes % (A) 17 %; MCH 28.7 pg (25.0-35.0); MCHC 33.7 g/dL (31.0-37.0); MCV 85.1 fL (80.0-100.0); Mean Platelet Volume 7.2; Monocytes # (A) 0.5 k/uL (0-1.0); Monocytes % (A) 5 %; Neutrophils # (A) 6.9 k/uL (1.3-7.7); Neutrophils % (A) 73 %; Platelet Count 231 k/uL (150-450); RBC 4.64 m/uL (4.30-5.90); RDW 14.1 % (11.5-15.5); WBC 9.5 k/uL (3.8-10.6)
--- NOTE | 2021-03-29 17:15 | CT ---
EXAMINATION TYPE: CT abdomen pelvis w con DATE OF EXAM: 03/29/2021 COMPARISON: CT abdomen pelvis 08/25/2015. HISTORY: abdominal pain CT DLP: 4765 mGycm Automated exposure control for dose reduction was used. TECHNIQUE: Helical acquisition of images was performed from the lung bases through the pelvis. CONTRAST: Performed without Oral Contrast and with IV Contrast, patient injected with 100 mL of Isovue 300. FINDINGS: Assessment of solid organs is limited due to poor contrast bolus timing. LUNG BASES: There are a few scattered nodular opacities at the lung bases with a more ground glass/co nsolidative opacity in the lingula. LIVER/GB: The liver is hypoattenuating suggesting steatosis. PANCREAS: No significant abnormality is seen. SPLEEN: No significant abnormality is seen. ADRENALS: No significant abnormality is seen. KIDNEYS: Partial left nephrectomy. Contrast images demonstrate partial contrast excretion in the bila teral collecting systems. FREE AIR: No free air is visualized. RETROPERITONEAL ADENOPATHY: None visualized REPRODUCTIVE ORGANS: No significant abnormality is seen URINARY BLADDER: No significant abnormality is seen. PELVIC ADENOPATHY: None visualized. OSSEOUS STRUCTURES: No significant abnormality is seen. BOWEL: No significant abnormality is seen. OTHER: None. IMPRESSION: 1. Assessment of solid organs is limited due to poor contrast bolus timing. 2. There are a few scattered nodular opacities at the lung bases with a more ground glass/consolidat elías opacity in the lingula. Findings likely on the basis of infectious/inflammatory etiology. Correla te with chest CT. 3. No acute process in the abdomen or pelvis however assessment is limited due to poor contrast bolu s timing.
--- NOTE | 2021-03-29 18:03 | XR ---
EXAMINATION TYPE: XR chest 2V DATE OF EXAM: 03/29/2021 COMPARISON: NONE HISTORY: Dyspnea. TECHNIQUE: Frontal and lateral views of the chest are obtained. FINDINGS: There is no focal air space opacity, pleural effusion, or pneumothorax seen. The cardiac silhouette size is within normal limits. The osseous structures are intact. Nodular opacity at the left base favored to relate to nipple. IMPRESSION: No acute cardiopulmonary process.
[2021-03-29 18:07] VITALS: BP 136/94; PULSE 98
== END 2021-03-29 19:37 | disposition home or self-care (01) ==
LOC: EC 14:11
DX: K92.1 Melena (principal); Z88.5 Allergy status to narcotic agent; Z85.528 Personal history of other malignant neoplasm of kidney; F32.A Depression, unspecified; Z20.822 Contact with and (suspected) exposure to COVID-19
CPT/HCPCS: 99284; 36415; 93005; 86900; 86901; 87338; 80053; 83605; 84484; 85025; 85610; 85730; 86850; 82272; 87324; 87045; 87046; 87635; 71046; 74177; Q9967

== ENCOUNTER 2021-12-20 10:41 | Emergency (ER) | payer OTHER ==
[2021-12-20 10:55] VITALS: RESP 18
--- NOTE | 2021-12-20 12:08 | XR ---
Right knee. HISTORY: Pain. COMPARISON: None. TECHNIQUE: 3 views the right knee were obtained. FINDINGS: There is no fracture, dislocation or focal intraosseous abnormality. There is marked joint space narr owing and hypertrophic spurring of the patellofemoral compartment indicating moderate to severe osteo arthritic change. There is mild joint space narrowing and hypertrophic spurring of both the medial la teral compartment indicating mild osteoarthritic change. IMPRESSION: 1. No evidence of acute trauma. 2. 3 compartment osteoarthritis greatest in the patellofemoral compartment.
--- NOTE | 2021-12-20 12:13 | ED ---
Lower Extremity Injury HPI - General Chief Complaint: Extremity Injury, Upper Stated Complaint: [facility] - rt knee injury Source: patient Mode of arrival: ambulatory Limitations: no limitations - History of Present Illness Initial Comments: Patient is a 56-year-old -[place] male presents the emergency room with complaints of pain in his right knee ongoing since December 11 when he slid at work and twisted his right knee. He reports full but painful range of motion and occasional buckling sensation without actual buckling. He has been taking Tylenol for pain as he reports he cannot take NSAIDs. He reports prior to his twisting at work he did not have any difficulties with his right knee. He denies any numbness or tingling in the extremity. He denies any wounds or any other joint pain. He has a past medical history significant for renal cell carcinoma with nephrectomy, subarachnoid hemorrhage, nephrolithiasis and sleep apnea. - Related Data Home Medications Medication Instructions Recorded Confirmed Multivitamins, Thera [Multivitamin 1 tab PO DAILY 02/16/18 05/05/18 (formulary)] Loratadine [Claritin] 10 mg PO DAILY 05/05/18 05/05/18 Metoprolol Tartrate 25 mg PO DAILY@1200 05/05/18 05/05/18 Terbinafine [LamISIL] 250 mg PO DAILY 05/05/18 05/05/18 Allergies Allergy/AdvReac Type Severity Reaction Status Date / Time morphine AdvReac Nausea & Verified 12/20/21 10:55 Vomiting Review of Systems ROS Statement: Those systems with pertinent positive or pertinent negative responses have been documented in the HPI. ROS Other: All systems not noted in ROS Statement are negative. Past Medical History Past Medical History: Cancer, Sleep Apnea/CPAP/BIPAP Additional Past Medical History / Comment(s): kidney cancer with surgery (2012), hx kidney stones, hx subaracchoid hemorrhage, bigeminy. History of Any Multi-Drug Resistant Organisms: None Reported Past Surgical History: Heart Catheterization, Orthopedic Surgery Additional Past Surgical History / Comment(s): partial nephrectomy(not sure which), rt wrist surgery Past Anesthesia/Blood Transfusion Reactions: No Reported Reaction Past Psychological History: Depression Smoking Status: Never smoker Past Alcohol Use History: None Reported Past Drug Use History: None Reported - Past Family History Mother Family Medical History: No Reported History General Exam General appearance: alert, in no apparent distress Head exam: Present: atraumatic, normocephalic, normal inspection Eye exam: Present: normal appearance, PERRL, EOMI. Absent: scleral icterus, conjunctival injection, periorbital swelling ENT exam: Present: normal exam, mucous membranes moist Neck exam: Present: normal inspection Respiratory exam: Absent: respiratory distress, accessory muscle use Cardiovascular Exam: Present: regular rate Right Knee exam: Present: full ROM, tenderness. Absent: swelling, deformity, crepitus, dislocation, effusion Back exam: Present: normal inspection Neurological exam: Present: alert, oriented X3, CN II-XII intact Psychiatric exam: Present: normal affect, normal mood Skin exam: Present: warm, dry, intact, normal color. Absent: rash Course Vital Signs 12/20/21 10:51 Temperature 97.7 F Pulse Rate 77 Respiratory 18 Rate Blood Pressure 134/90 O2 Sat by Pulse 97 Oximetry Medical Decision Making - Medical Decision Making 56-year-old [place] male presenting to the emergency room with complaints of right knee pain 1 week after twisting his knee at work. Will check x-ray of the right knee. Unable to take NSAIDs due to previous renal cell carcinoma and partial nephrectomy. X-ray shows tricompartment arthritis. No acute abnormalities. Will give dose of Solu-Medrol the setting of unable to take NSAIDs to reduce inflammation from arthritis. Will discharge home with follow- up with his primary care provider. Encouraged range of motion as tolerated and continue Tylenol use for pain. Case discussed with Dr. Mcmanus. - Radiology Data Radiology results: report reviewed, image reviewed X-ray right knee 3 view no evidence of acute trauma. 3 compartment arthritis greatest in the patellofemoral compartment. Disposition Clinical Impression: Right knee sprain Disposition: HOME SELF-CARE Condition: Stable Instructions (If sedation given, give patient instructions): Knee Sprain (DC), Osteoarthritis (ED) Additional Instructions: Please continue to utilize Tylenol as needed [id number] for pain and your knee. Range of motion as tolerated encouraged. May utilize [id number] knee brace for additional support if desired. Please follow-up with your primary care provider. Please return to the Emergency Department if symptoms worsen or any other concerns. Is patient prescribed a controlled substance at d/c from ED?: No Referrals: Geovanna Fortune MD [Primary Care Provider] - 1-2 days Time of Disposition: 13:36
[2021-12-20] MEDS ORDERED: methylPREDNISolone SOD SUCCI 125 MG/2 ML VIAL IM ONE (12:32)
[2021-12-20 14:16] VITALS: BP 128/88; PULSE 81; TEMP 98
== END 2021-12-20 14:14 | disposition home or self-care (01) ==
LOC: EC 10:41
DX: S83.91XA Sprain of unspecified site of right knee, initial encounter (principal); Z88.5 Allergy status to narcotic agent; X50.9XXA Other and unspecified overexertion or strenuous movements or postures, initial encounter; Y92.89 Other specified places as the place of occurrence of the external cause
CPT/HCPCS: 73562; 99283; 96372; J2930

== ENCOUNTER → 2021-12-31 | Outpatient (CLI) | payer OTHER ==
--- NOTE | 2021-12-31 14:42 | P.PN ---
Subjective DATE: 12/31/2021 FOLLOW UP VISIT. Patient with obstructive sleep apnea hypopnea syndrome return to sleep center for follow-up visit. Information from previous visit have been reviewed. Patient is using PAP equipment every night for the whole night, getting PAP supplies in time. The patient does not have significant problems with the mask, PAP unit and humidification. [place] sleepiness scale is 1, which is perfect. I checked PAP unit. PAP unit pressure 13 cm H2O. Usage is 100 % for more then 4 hours, average 9.5 hours per night. Leak is to l/m, which is in acceptable range. Apnea Hypopnea Index is 1.1, which is perfect. MEDICATIONS:1. Metformin 500 mg twice a day 2. Seroquel 100 mg once a day 3. Cymbalta 30 mg once a day During physical exam: GENERAL: A pleasant patient without any distress. VITAL SIGNS: BP 147/88, HR 81, RR 14 , weight 449.8, temperature 96.6, oxygen saturation at room air 98 % . HEENT: PERRLA, EOMI.low position of soft palate, Mallapati 3-4 . NECK: Supple. No JVD. LUNGS: Clear to percussion and to auscultation. Good air exchange. No wheezing or rhonchi. HEART: S1, S2 regular. ABDOMEN: Soft and nontender. Obese EXTREMITIES: No clubbing or cyanosis. UTILITY BAG ASSEMBLER: Awake, alert, and oriented x3. No focal deficit. Impressions: 1. Obstructive sleep apnea-hypopnea syndrome. Patient demonstrated great compliance with treatment, benefiting from treatment. 2. Obesity, patient lost about 30 pounds since previous visit. 3. History of cardiac arrhythmia in the past. 4. Status post right kidney resection for cancer. 5. Status post right wrist surgery. Plan: 1. Continue using PAP equipment every night for the whole night. 2. To change air filter at least 1-2 times per month. 3. PAP unit should stay lower then position of the head. 4. Advised patient to remove all remaining water from humidifier canister daily and make it dry after each usage. Refill canister with fresh distilled water before each usage. 5. Sleep hygiene with regular time in bed for at least 8 hours. 6. Precautions related to driving. No driving if feel any sleepiness. 7. I will maintain prescription for PAP supplies including mask, tube, filters. 8. Follow up visit in 6 months or earlier if patient has any problems. 9. Watching and losing weight. Thank you very much for allowing me to participate in the management of your patient. Dustin Jimenez MD, PhD, FAASM. Diplomat of [employer], Sleep Medicine Board by [employer] of [facility] [place]
== END ==
LOC: SLEEP 14:02
PROVIDERS: ATTEND Internal Medicine
DX: G47.33 Obstructive sleep apnea (adult) (pediatric) (principal); Z86.79 Personal history of other diseases of the circulatory system; Z98.890 Other specified postprocedural states; Z99.89 Dependence on other enabling machines and devices

== ENCOUNTER 2022-03-12 17:46 | Emergency (ER) | payer OTHER ==
[2022-03-12 18:12] VITALS: TEMP 98
[2022-03-12] MEDS ORDERED: PROPARACAINE 0.5% OPHTH DROPS 15 ML BTL LEFT EYE STA (19:54)
[2022-03-12] MEDS ORDERED: FLUORESCEIN STRIPS 1 MG STRIP LEFT EYE ONE (19:55)
--- NOTE | 2022-03-12 20:11 | ED ---
Eye Problem HPI - General Chief complaint: Eye Problems Stated complaint: Eye injury Time Seen by Provider: 03/12/22 19:43 Source: patient, RN notes reviewed Mode of arrival: ambulatory Limitations: no limitations - History of Present Illness Initial comments: This is a pleasant 56-year-old male with a history of sleep apnea and cancer. Patient presents to the emergency department complaining of left eye irritation and redness. Patient states he was driving at about 4 PM when he felt something in his left eye. Patient states he thought he had something in the eye. He then got home he noticed some redness today. Denies any problems with visual acuity. No headache, no fever or chills, no changes in vision or hearing, no sore throat or difficulty with speech, no neck pain, no chest pain or shortness of breath, no abdominal pain, no nausea or vomiting, no changes in urination or bowel movements, no numbness or tingling, no extremity pain, no skin rashes or lesions. Past medical, surgical, social, and family history reviewed. MD chief complaint: eye redness, eye injury - Related Data Home Medications Medication Instructions Recorded Confirmed Multivitamins, Thera [Multivitamin 1 tab PO DAILY 02/16/18 05/05/18 (formulary)] Loratadine [Claritin] 10 mg PO DAILY 05/05/18 05/05/18 Metoprolol Tartrate 25 mg PO DAILY@1200 05/05/18 05/05/18 Terbinafine [LamISIL] 250 mg PO DAILY 05/05/18 05/05/18 Allergies Allergy/AdvReac Type Severity Reaction Status Date / Time morphine AdvReac Nausea & Verified 12/20/21 10:55 Vomiting Review of Systems ROS Statement: Those systems with pertinent positive or pertinent negative responses have been documented in the HPI. ROS Other: All systems not noted in ROS Statement are negative. Past Medical History Past Medical History: Cancer, Sleep Apnea/CPAP/BIPAP Additional Past Medical History / Comment(s): kidney cancer with surgery (2012), hx kidney stones, hx subaracchoid hemorrhage, bigeminy. History of Any Multi-Drug Resistant Organisms: None Reported Past Surgical History: Heart Catheterization, Orthopedic Surgery Additional Past Surgical History / Comment(s): partial nephrectomy(not sure which), rt wrist surgery Past Anesthesia/Blood Transfusion Reactions: No Reported Reaction Past Psychological History: Depression Smoking Status: Never smoker Past Alcohol Use History: None Reported Past Drug Use History: None Reported - Past Family History Mother Family Medical History: No Reported History General Exam - General Exam Comments Initial Comments: Patient no distress. Does not appear to be ill or toxic. Limitations: no limitations General appearance: alert, in no apparent distress Eye exam: Present: PERRL, EOMI, other (Lateral subconjunctival hemorrhage, 40%, appears superficial, no evidence of foreign body). Absent: nystagmus, periorbital swelling, periorbital tenderness Pupils: Present: other (Some lab examination performed. Negative Rei's test. No evidence of dendrites. No foreign body. Ocular pressure normal) Expanded Eyelids: Normal Inspection: Bilateral Pupils: Regular, Round: Bilateral Sclera/Conjunctival: Normal Inspection: Right, Hemorrhage: Left (30% lateral, no foreign body, no abrasion) Anterior chamber: Normal Inspection: Bilateral Visual acuity (R) = 20/: 20 Visual acuity (L) = 20/: 20 With correction: Yes ENT exam: Present: normal exam. Absent: normal external ear exam Neck exam: Present: normal inspection Respiratory exam: Present: normal lung sounds bilaterally. Absent: respiratory distress Cardiovascular Exam: Present: regular rate, normal rhythm, normal heart sounds. Absent: systolic murmur, diastolic murmur, rubs, gallop, clicks GI/Abdominal exam: Present: soft. Absent: tenderness Extremities exam: Present: normal inspection Back exam: Present: normal inspection Neurological exam: Present: alert, oriented X3, CN II-XII intact Psychiatric exam: Present: normal affect, normal mood Skin exam: Present: warm, dry, intact, normal color. Absent: rash Course Vital Signs 03/12/22 03/12/22 18:08 20:20 Temperature 98 F Pulse Rate 89 78 Respiratory 16 18 Rate Blood Pressure 190/102 164/93 O2 Sat by Pulse 98 96 Oximetry Procedures - Procedures Initial comment: Slit lamp examination performed after instillation of anesthetic and fluorescein dye Medical Decision Making - Medical Decision Making Was pt. sent in by a medical professional or institution? @ -[no] Did you speak to anyone other than the patient for history? @ -[No] Did you review nursing and triage notes? @ -Agree Were old charts reviewed? @ -no Differential Diagnosis? @ -Corneal foreign body, some conjunctival hemorrhage, conjunctivitis, hyphema, globe rupture, herpetic infection, this is not an exhaustive list What meds were considered but not given? Why? @ -[I did consider antibiotic ointment. However this appears to be consistent with a uncomplicated subconjunctival hemorrhage. Medication deferred] Did you discuss the management of the patient with other professionals? @ -[ED attending physician] What co-morbidities impacted this encounter? (DM, HTN, Smoking, COPD, CAD, Cancer, CVA, Hep., AIDS, mental health diagnosis, sleep apnea, morbid obesity)? @ -[Obesity, elevated blood pressure] Was patient admitted / discharged? @ -[Slit-lamp examination performed. No evidence of globe rupture. Patient tolerated all procedures well. Appears to be consistent with a mild ubconjunctival hemorrhage. No foreign body. Vision his blood pressure was elevated. I did have a long discussion with the patient regarding this. We'll have the patient follow-up with his regular doctor. Ophthalmology follow-up given if needed. Course in prognosis discussed in detail.] Undiagnosed new problem with uncertain prognosis? @ -[none] Drug Therapy requiring intensive monitoring for toxicity (Heparin, Nitro, Insulin, Cardizem)? @ -[none] Were any procedures done? @ -[none] Diagnosis/symptom? @ -[Subconjunctival hemorrhage, elevated blood pressure] Acute, or Chronic, or Acute on Chronic? @ -[Acute, unknown] Uncomplicated (without systemic symptoms) or Complicated (systemic symptoms)? @ -[Uncomplicated] Side effects of treatment? @ -[none] Exacerbation, Progression, or Severe Exacerbation] @ -[no] Poses a threat to life or bodily function? @ -Unlikely Patient was told to return to the ER for any signs or symptoms worsen. Told to return immediately if any other problems arise. All questions answered. Treatment plan discussed. Patient in agreement Every effort has been made to ensure accuracy of this dictation. However, due to the limitations of electronic medical records and dictation devices, errors in charting still occur. The case was discussed in detail with ED attending physician. Presentation, fi ndings, treatment plan discussed in detail. Physician Pediatrician Dr. Mcmanus Disposition Clinical Impression: Subconjunctival hemorrhage of left eye, Elevated blood pressure reading Disposition: HOME SELF-CARE Condition: Good Instructions (If sedation given, give patient instructions): Subconjunctival Hemorrhage (ED), Hypertension (ED) Additional Instructions: Follow-up with your regular physician as directed. Return to the ER immediately if any symptoms worsen, new symptoms arise, or any other problems develop. Follow-up with ophthalmology as needed. Is patient prescribed a controlled substance at d/c from ED?: No Referrals: Geovanna Fortune MD [Primary Care Provider] - 1-2 days James Sauer MD [STAFF PHYSICIAN] - 1-2 days Time of Disposition: 20:32
[2022-03-12 20:21] VITALS: BP 164/93; PULSE 78; RESP 18
== END 2022-03-12 20:42 | disposition home or self-care (01) ==
LOC: EC 17:46
DX: H11.32 Conjunctival hemorrhage, left eye (principal); I10 Essential (primary) hypertension; G47.30 Sleep apnea, unspecified; F32.A Depression, unspecified; Z88.5 Allergy status to narcotic agent
CPT/HCPCS: 65222; 99283

== ENCOUNTER 2022-07-21 11:08 | Emergency (ER) | payer OTHER ==
[2022-07-21 11:49] VITALS: RESP 16; TEMP 97.9
[2022-07-21] MEDS ORDERED: KETOROLAC 15 MG/ML 1 ML VIAL IM STA (12:12)
--- NOTE | 2022-07-21 12:39 | ED ---
Lower Extremity Injury HPI - General Chief Complaint: Extremity Injury, Lower Stated Complaint: "pop" in calf Time Seen by Provider: 07/21/22 11:54 Source: patient, RN notes reviewed Mode of arrival: ambulatory Limitations: no limitations - History of Present Illness Initial Comments: Patient is a 56-year-old -Portuguese male presenting to the emergency room with complaints of left calf pain which began suddenly as he was walking up stairs he heard a pop and developed posterior calf pain. He reports range of motion is impaired due to pain. He denies any numbness or tingling. He denies any previous injury to his left lower extremity. He denies any other symptoms at this time including any chest pain, shortness of breath, headache, dizziness, abdominal pain, nausea, vomiting, fevers or chills. He has past medical history significant for renal cell carcinoma with partial nephrectomy, subarachnoid hemorrhage and sleep apnea. - Related Data Home Medications Medication Instructions Recorded Confirmed Multivitamins, Thera [Multivitamin 1 tab PO DAILY 02/16/18 05/05/18 (formulary)] Loratadine [Claritin] 10 mg PO DAILY 05/05/18 05/05/18 Metoprolol Tartrate 25 mg PO DAILY@1200 05/05/18 05/05/18 Terbinafine [LamISIL] 250 mg PO DAILY 05/05/18 05/05/18 Allergies Allergy/AdvReac Type Severity Reaction Status Date / Time morphine AdvReac Nausea & Verified 07/21/22 11:49 Vomiting Review of Systems ROS Statement: Those systems with pertinent positive or pertinent negative responses have been documented in the HPI. ROS Other: All systems not noted in ROS Statement are negative. Past Medical History Past Medical History: Cancer, Sleep Apnea/CPAP/BIPAP Additional Past Medical History / Comment(s): kidney cancer with surgery (2012), hx kidney stones, hx subaracchoid hemorrhage, bigeminy. History of Any Multi-Drug Resistant Organisms: None Reported Past Surgical History: Heart Catheterization, Orthopedic Surgery Additional Past Surgical History / Comment(s): partial nephrectomy(not sure which), rt wrist surgery Past Anesthesia/Blood Transfusion Reactions: No Reported Reaction Past Psychological History: Depression Smoking Status: Never smoker Past Alcohol Use History: None Reported Past Drug Use History: None Reported - Past Family History Mother Family Medical History: No Reported History General Exam Limitations: no limitations General appearance: alert, in no apparent distress, obese Head exam: Present: atraumatic, normocephalic, normal inspection Eye exam: Present: normal appearance, PERRL, EOMI. Absent: scleral icterus, conjunctival injection, periorbital swelling ENT exam: Present: normal exam, mucous membranes moist Neck exam: Present: normal inspection, full ROM Respiratory exam: Absent: respiratory distress, accessory muscle use Cardiovascular Exam: Present: regular rate GI/Abdominal exam: Present: other (large abdomen). Absent: distended Extremities exam: Present: calf tenderness, other (No Achilles tenderness.) Left Lower Leg exam: Present: tenderness, swelling (Trace). Absent: full ROM (Limited by pain), abrasion, laceration, ecchymosis, deformity, crepitus, dislocation Foot/Toe exam: Present: swelling Neurovascular tendon exam: Present: no vascular compromise Gait: observed and limited by pain Back exam: Present: normal inspection Neurological exam: Present: alert, oriented X3, CN II-XII intact Psychiatric exam: Present: normal affect, normal mood Skin exam: Present: warm, dry, intact, other (Bilateral lower extremities discolored) Course Vital Signs 07/21/22 07/21/22 11:46 13:54 Temperature 97.9 F Pulse Rate 92 88 Respiratory 16 16 Rate Blood Pressure 144/86 152/83 O2 Sat by Pulse 96 98 Oximetry Medical Decision Making - Medical Decision Making Was pt. sent in by a medical professional or institution (, PA, HEARING THERAPIST, urgent care, hospital, or [place] [facility] facility...) When possible be specific @ -No Did you speak to anyone other than the patient for history (EMS, parent, family, police, friend...)? What history was obtained from this source @ -No Did you review nursing and triage notes (agree or disagree)? Why? @ -I reviewed and agree with nursing and triage notes Were old charts reviewed (outside hosp., previous admission, EMS record, old EKG, old radiological studies, urgent care reports/EKG's, [place] health care facility records)? Report findings @ -No old charts were reviewed Differential Diagnosis (chest pain, altered mental status, abdominal pain women, abdominal pain men, vaginal bleeding, weakness, fever, dyspnea, syncope, headache, dizziness, GI bleed, back pain, seizure, CVA, palpatations, mental health, musculoskeletal)? @ -Differential Musculoskeletal Muscular strain, contusion, ligament sprain, fracture, arthritis, septic arthritis, bursitis, cellulitis, muscle spasm, nerve compression, DVT, arterial occlusion, herpes zoster, electrolyte abnormality, tumor.... This is not meant to be in all inclusive list EKG interpreted by me (3pts min.). @ -None done X-rays interpreted by me (1pt min.). @ -Left tibia-fibula x-ray: No evidence of fracture or dislocation. No acute osseous process. CT interpreted by me (1pt min.). @ -None done U/S . @ -Venous Doppler ultrasound left lower extremity not interpreted by me report per radiologist: No evidence of DVT. Superficial venous thrombosis within the superficial branch of the greater saphenous vein. What testing was considered but not performed or refused? (CT, X-rays, U/S, labs)? Why? @ -None What meds were considered but not given or refused? Why? @ -None Did you discuss the management of the patient with other professionals (professionals i.e. , PA, HEARING THERAPIST, lab, RT, psych nurse, social services analyst, nurse sane, teacher, transportation officer, therapeutic case manager)? Give summary @ -No Was smoking cessation discussed for >3mins.? @ -No Was critical care preformed (if so, how long)? @ -No Were there social determinants of health that impacted care today? How? (Homelessness, low income, unemployed, alcoholism, drug addiction, transportation, low edu. Level, literacy, decrease access to med. care, snf, rehab)? @ -No Was there de-escalation of care discussed even if they declined (Discuss DNR or withdrawal of care, Hospice)? DNR status @ -No What co-morbidities impacted this encounter? (DM, HTN, Smoking, COPD, CAD, Cancer, CVA, ARF, Chemo, Hep., AIDS, mental health diagnosis, sleep apnea, morbid obesity)? @ -Obesity, BMI 49.6 Was patient admitted / discharged? Hospital course, mention meds given and route, prescriptions, significant lab abnormalities, going to OR and other pertinent info. @ -56-year-old -Portuguese male presenting to the emergency room with posterior left lower extremity pain mid calf region worse with flexion and weightbearing. Range of motion limited due to pain but intact. Lower extremity of left slightly larger than right bilateral lower extremity discoloration noted high probability for peripheral vascular disease. Will give Toradol IM for pain and obtain x-ray of the tibia-fibula along with venous Doppler. Pain persists but improved with Toradol. X-ray tibia-fibula negative for acute process. Ultrasound of lower extremity negative for DVT. Superficial venous thrombosis within superficial branch of the greater saphenous vein consistent with current pain location identified. These findings were discussed with patient and spouse at bedside. Education regarding superficial venous thrombosis discussed. Advised use of Tylenol No. 3 starter pack for pain as he is unable to take NSAIDs. Encouraged elevation when possible to reduce swelling. Advise follow-up with primary care provider. Questions and concerns answered. Return parameters to the emergency room discussed. Will discharge home in stable condition with Tylenol 3 starter pack to utilize for pain in left lower extremity with superficial thrombophlebitis of left lower extremity advising follow-up with primary care provider. Undiagnosed new problem with uncertain prognosis? @ -No Drug Therapy requiring intensive monitoring for toxicity (Heparin, Nitro, Insulin, Cardizem)? @ -No Were any procedures done? @ -No Diagnosis/symptom? @ -Superficial thrombophlebitis phlebitis of left lower extremity Acute, or Chronic, or Acute on Chronic? @ -Acute Uncomplicated (without systemic symptoms) or Complicated (systemic symptoms)? @ -Uncomplicated Side effects of treatment? @ -No Exacerbation, Progression, or Severe Exacerbation? @ -No Poses a threat to life or bodily function? How? (Chest pain, [place], [place], pneumonia, PE, COPD, DKA, ARF, appy, cholecystitis, CVA, Diverticulitis, Homicidal, Suicidal, threat to staff... and all critical care pts) @ -No. Case discussed with Dr. Lees. Disposition Clinical Impression: Superficial thrombophlebitis of lower leg Disposition: HOME SELF-CARE Condition: Stable Instructions (If sedation given, give patient instructions): Superficial Thrombophlebitis (ED) Additional Instructions: Utilize Tylenol 3 starter pack as needed for pain. Range of motion as tolerated encouraged. Please follow-up with your primary care provider. Please return to the Emergency Department if symptoms worsen or any other concerns. Is patient prescribed a controlled substance at d/c from ED?: No Referrals: Geovanna Fortune MD [Primary Care Provider] - 1-2 days Time of Disposition: 14:15
--- NOTE | 2022-07-21 12:52 | XR ---
EXAMINATION TYPE: XR tibia fibula LT DATE OF EXAM: 07/21/2022 COMPARISON: NONE HISTORY: Pain TECHNIQUE: Two views are submitted. FINDINGS: The osseous structures are intact. There is arthropathy of the knee joint with hypertrophic spurring. There are soft tissue calcifications. There are large calcaneal spurs and there is arthropathy of th e tarsal bones with hypertrophic spurring and loss of joint space. No erosive changes. IMPRESSION: 1. No acute osseous abnormality. 2. Knee joint arthropathy correlate for osteoarthritis. 3. Large spurs involving the calcaneus with residual arthropathy of the foot.
[2022-07-21 13:55] VITALS: BP 152/83; PULSE 88
--- NOTE | 2022-07-21 13:57 | US ---
EXAMINATION TYPE: US venous doppler duplex LE LT DATE OF EXAM: 07/21/2022 1:52 PM COMPARISON: NONE CLINICAL INDICATION: Male, 56 years old with history of pain swelling; No hx of DVT. Patient does not take blood thinners. Pain. SIDE PERFORMED: Left TECHNIQUE: The lower extremity deep venous system is examined utilizing real time linear array sonog espinoza with graded compression, doppler sonography and color-flow sonography. VESSELS IMAGED: Common Femoral Vein Deep Femoral Vein Greater Saphenous Vein * Femoral Vein Popliteal Vein Small Saphenous Vein * Proximal Calf Veins (* superficial vessels) Limited due to body habitus. Left Leg: No evidence of DVT. *There appears to be internal echoes within superficial branch of grea ter saphenous vein within the calf and down to the ankle level. Slight color defect within the vessel . This superficial vessel appears to compress incompletely. *Left calf edema noted. Unable to visualize deep calf veins at calf/ankle due to edema. IMPRESSION: 1. No diagnostic evidence of DVT. However, findings are suspicious for superficial venous thrombosis within a superficial branch of the greater saphenous vein.
[2022-07-21] MEDS ORDERED: ACET/COD 300 MG/30 MG STARTER PACK 6 TAB BTL PO STA (14:11)
== END 2022-07-21 14:24 | disposition home or self-care (01) ==
LOC: EC 11:08
DX: I80.3 Phlebitis and thrombophlebitis of lower extremities, unspecified (principal); G47.30 Sleep apnea, unspecified; F32.A Depression, unspecified; Z79.899 Other long term (current) drug therapy; Z88.5 Allergy status to narcotic agent
CPT/HCPCS: 73590; 93971; 99284; 96372; J1885

== ENCOUNTER → 2022-10-21 | Outpatient (CLI) | payer OTHER ==
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
== END ==
LOC: 3 N SLEEP 11:50
PROVIDERS: ATTEND Internal Medicine
DX: G47.33 Obstructive sleep apnea (adult) (pediatric) (principal); E66.9 Obesity, unspecified; Z90.5 Acquired absence of kidney; Z85.528 Personal history of other malignant neoplasm of kidney; Z99.89 Dependence on other enabling machines and devices; Z96.631 Presence of right artificial wrist joint; Z88.5 Allergy status to narcotic agent
CPT/HCPCS: 99212

== ENCOUNTER → 2023-05-26 | Outpatient (CLI) | payer OTHER ==
--- NOTE | 2023-05-27 16:05 | US ---
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 Detailed parenchymal assessment of the kidneys is limited. Right Kidney: visualized portions appear wnl Left Kidney: visualized portions appear wnl Bladder: wnl Bilateral Jets seen: no IMPRESSION: 1. No hydronephrosis. 2. Note that detailed parenchymal assessment of the kidneys is limited due to exam limitations above.
== END | disposition home or self-care (01) ==
LOC: RADUSWWP 13:18
PROVIDERS: ATTEND Family Medicine
DX: E66.01 Morbid (severe) obesity due to excess calories (principal); Z85.528 Personal history of other malignant neoplasm of kidney; Z90.5 Acquired absence of kidney
CPT/HCPCS: 76770

== ENCOUNTER → 2023-09-01 | Outpatient (CLI) | payer OTHER ==
[2023-09-01 11:34] VITALS: BP 165/81; PULSE 91; RESP 16; TEMP 97.6
--- NOTE | 2023-09-01 11:50 | P.PROGSL ---
Subjective DATE: 09/01/2023 FOLLOW UP VISIT. Patient with obstructive sleep apnea hypopnea syndrome return to sleep center for follow-up visit. Information from previous visit have been reviewed. This is first visit after patient received new CPAP unit. Patient is using PAP equipment every night for the whole night, getting PAP supplies in time. The patient does not have significant problems with the mask, PAP unit and humidification. [place] sleepiness scale is 2, which is perfect. I checked information from PAP unit. PAP unit pressure 10-16, average 15.1 cm H2O. Usage is 90% and 87% for more then 4 hours, average 8 hours per night. Leak is 7.8 l/m, which is in acceptable range. Apnea Hypopnea Index is 0.8, which is perfect. MEDICATIONS:1. Lipitor 2. Lunesta During physical exam: GENERAL: A pleasant patient without any distress. VITAL SIGNS: Please see below, weight 562.8 pounds. HEENT: PERRLA, EOMI.low position of soft palate, Mallapati 3-4 . NECK: Supple. No JVD. LUNGS: Clear to percussion and to auscultation. Good air exchange. No wheezing or rhonchi. HEART: S1, S2 regular. ABDOMEN: Soft and nontender. Obese EXTREMITIES: No clubbing or cyanosis. UNARMED SECURITY GUARD: Awake, alert, and oriented x3. No focal deficit. Impressions: 1. Obstructive sleep apnea-hypopnea syndrome. Patient demonstrated great compliance with treatment, benefiting from treatment. 2. Obesity. 3. History of cardiac arrhythmia in the past. 4. Status post right kidney resection for cancer. 5. Status post right wrist surgery. Plan: 1. Continue using PAP equipment every night for the whole night. 2. To change air filter at least 1-2 times per month. 3. PAP unit should stay lower then position of the head. 4. Advised patient to remove all remaining water from humidifier canister daily and make it dry after each usage. Refill canister with fresh distilled water before each usage. 5. Sleep hygiene with regular time in bed for at least 8 hours. 6. Precautions related to driving. No driving if feel any sleepiness. 7. I will maintain prescription for PAP supplies including mask, tube, filters. 8. Follow up visit in 6 months or earlier if patient has any problems. 9. Watching and losing weight. Thank you very much for allowing me to participate in the management of your patient. Dustin Jimenez MD, PhD, FAASM. Diplomat of [place] [employer], Sleep Medicine Board by [employer] Crate Repairer of [facility] [place] Objective - Vital Signs Vital Signs: Vital Signs Temp 97.6 F 09/01/23 11:30 Pulse 91 09/01/23 11:30 Resp 16 09/01/23 11:30 BP 165/81 09/01/23 11:30 Pulse Ox 95 09/01/23 11:30 FiO2 Intake & Output 08/31/23 09/01/23 09/01/23 18:59 06:59 18:59 Weight 209.56 kg Home Medications: Home Medications Medication Instructions Recorded Confirmed Type Multivitamins, Thera [Multivitamin 1 tab PO DAILY 02/16/18 05/05/18 History (formulary)] Loratadine [Claritin] 10 mg PO DAILY 05/05/18 05/05/18 History Metoprolol Tartrate 25 mg PO DAILY@1200 05/05/18 05/05/18 History Terbinafine [LamISIL] 250 mg PO DAILY 05/05/18 05/05/18 History
== END ==
LOC: 3 N SLEEP 11:18
PROVIDERS: ATTEND Internal Medicine
DX: G47.33 Obstructive sleep apnea (adult) (pediatric) (principal); E66.9 Obesity, unspecified; Z98.890 Other specified postprocedural states; Z99.89 Dependence on other enabling machines and devices; Z86.79 Personal history of other diseases of the circulatory system; Z85.528 Personal history of other malignant neoplasm of kidney; Z88.5 Allergy status to narcotic agent; Z68.45 Body mass index [BMI] 70 or greater, adult
CPT/HCPCS: 99212

== ENCOUNTER → 2024-05-10 | Outpatient (CLI) | payer BC ==
[2024-05-10 11:21] VITALS: BP 154/95; PULSE 62; RESP 18; TEMP 98.2
--- NOTE | 2024-05-10 11:47 | P.PROGSL ---
Subjective DATE: 05/10/2024 FOLLOW UP VISIT. Patient with obstructive sleep apnea hypopnea syndrome return to sleep center for follow-up visit. Information from previous visit have been reviewed. Patient is using PAP equipment every night for the whole night, getting PAP supplies in time. The patient does not have significant problems with the mask, PAP unit and humidification. [place] sleepiness scale is 2. I checked information from PAP unit. PAP unit pressure 10-16, average 15 cm H2O. Usage is 100% for more then 4 hours, average 8.5 hours per night. Leak is 7.2 l/m, which is in acceptable range. Apnea Hypopnea Index is 1.0, which is normal. MEDICATIONS have been reviewed, please see below. During physical exam: GENERAL: A pleasant patient without any distress. VITAL SIGNS: Please see below, weight is 468 lbs. HEENT: PERRLA, EOMI.low position of soft palate, Mallapati 34. NECK: Supple. No JVD. LUNGS: Clear to percussion and to auscultation. Good air exchange. No wheezing or rhonchi. HEART: S1, S2 regular. ABDOMEN: Soft and nontender. Obese EXTREMITIES: No clubbing or cyanosis. AREA DEVELOPMENT CONSULTANT: Awake, alert, and oriented x3. No focal deficit. Impressions: 1. Obstructive sleep apnea-hypopnea syndrome. Patient demonstrated great compliance with treatment, benefiting from treatment. 2. Obesity, BMI 56.1, patient increased weight on 6 pounds comparing with previous visit. 3. History of cardiac arrhythmia in the past. 4. Status post right wrist surgery. 5. Status post right kidney resection for cancer. Plan: 1. Continue using PAP equipment every night for the whole night. 2. Sleep hygiene with regular time in bed for at least 7.5-8 hours 3. PAP unit should stay lower then position of the head. 4. Advised patient to remove all remaining water from humidifier canister daily and make it dry after each usage. Refill canister with fresh distilled water before each usage. 5. Watching and aggressive losing weight. 6. Precautions related to driving. No driving if feel any sleepiness. 7. I will maintain prescription for PAP supplies including mask, tube, filters. 8. Follow up visit in 8 months or earlier if patient has any problems. Thank you very much for allowing me to participate in the management of your patient. Dustin Jimenez MD, PhD, FAASM. Diplomat of [place] [employer], Sleep Medicine Board by [place] [employer] Optician Apprentice Dispensing of [facility] [place] Objective - Vital Signs Vital Signs: Vital Signs Temp 98.2 F 05/10/24 11:19 Pulse 62 05/10/24 11:19 Resp 18 05/10/24 11:19 BP 154/95 05/10/24 11:19 Pulse Ox 97 05/10/24 11:19 FiO2 Intake & Output 05/09/24 05/10/24 05/10/24 18:59 06:59 18:59 Weight 212.281 kg Home Medications: Home Medications Medication Instructions Recorded Confirmed Type Multivitamins, Thera [Multivitamin 1 tab PO DAILY 02/16/18 05/10/24 History (formulary)] Loratadine [Claritin] 10 mg PO DAILY 05/05/18 05/05/18 History Metoprolol Tartrate 25 mg PO DAILY@1200 05/05/18 05/05/18 History Terbinafine [LamISIL] 250 mg PO DAILY 05/05/18 05/05/18 History Atorvastatin [Lipitor] 20 mg PO DAILY 05/10/24 05/10/24 History Daridorexant HCl [Quviviq] 50 mg PO DAILY 05/10/24 05/10/24 History
== END ==
LOC: 3 N SLEEP 10:47
PROVIDERS: ATTEND Internal Medicine
DX: G47.33 Obstructive sleep apnea (adult) (pediatric) (principal); E66.9 Obesity, unspecified; Z68.43 Body mass index [BMI] 50.0-59.9, adult; Z86.79 Personal history of other diseases of the circulatory system; Z98.890 Other specified postprocedural states; Z88.5 Allergy status to narcotic agent
CPT/HCPCS: 99212